=== PATIENT | female | born 1935 | race Caucasian/White ===

== ENCOUNTER 2019-04-26 16:32 | Inpatient (IN) | payer MEDICARE, BC ==
[~2019-04-26] VITALS: Ht 167.6 cm; Wt 63.5 kg
--- NOTE | 2019-04-26 16:40 | NUR ---
ayanna, from [facility], c/o left hip pain s/p glf whilw making her bed, -ko. PATIENT A/OX1, BREATHING EVEN AND UNLABORED, NO SOB NOTED, KEPT COMFORTABLE, ATTACHED TO THE IT APPLICATION ADMINISTRATOR.
[2019-04-26] MEDS ORDERED: ONDANSETRON HCL/PF 4 MG/2 ML VIAL ONE (16:50)
[2019-04-26] MEDS ORDERED: MORPHINE SULFATE INJ 4 MG/ML DISP.SYRIN ONE (16:51)
[2019-04-26] MEDS ORDERED: MORPHINE SULFATE INJ 2 MG/ML DISP.SYRIN IV ONE (17:00)
[2019-04-26] MEDS ORDERED: ONDANSETRON HCL/PF 4 MG/2 ML VIAL IVP ONE (17:00)
[2019-04-26 17:05] LABS: BASOPHILS % (AUTO) 0.5 % (0.0-2.0); EOSINOPHILS % (AUTO) 0.4 % (0.0-6.0); HEMATOCRIT 37 % (33-45); HEMOGLOBIN 12.2 g/dL (11.5-14.8); LYMPHOCYTES % (AUTO) 14.9 % (20.0-44.0); MEAN CORPUSCULAR HGB CONC 33 g/dl (31.0-36.0); MEAN CORPUSCULAR VOLUME 88 fL (82-100); MONOCYTES # (AUTO) 0.5 /CMM (0.1-1.30); NEUTROPHILS % (AUTO) 77.2 % (43.0-81.0); PLATELET COUNT (AUTO) 277 /CMM (150-450); RED BLOOD CELL COUNT(AUTO) 4.18 MIL/uL (4.0-5.2); WHITE BLOOD COUNT (AUTO) 6.4 K/uL (4.3-11.0)
[2019-04-26 17:34] LABS: CREATININE 0.9 mg/dL (0.6-1.3); POTASSIUM 4.1 mmol/L (3.5-5.1)
[2019-04-26 17:41] LABS: ALBUMIN 3.7 g/dL (3.4-5.0); BILIRUBIN,DIRECT 0.1 mg/dL (0.0-0.2); BILIRUBIN,TOTAL 0.5 mg/dL (0.2-1.0); TOTAL PROTEIN, SERUM 7.4 g/dL (6.4-8.2)
[2019-04-26] MEDS ORDERED: LORA-259 PO (17:59)
--- NOTE | 2019-04-26 18:19 | NUR ---
PAGED ANASTASIYA BOONE PAGED
[2019-04-26] MEDS ORDERED: IV D5/0.45 NACL 1,000 ML IV PRN (18:40)
--- NOTE | 2019-04-26 18:56 | NUR ---
DR COPPOLA SPOKE WITH DR. BOONE.
--- NOTE | 2019-04-26 18:57 | NUR ---
CALLED NURSING SUP FOR BED
[2019-04-26] MEDS ORDERED: ACETAMINOPHEN 325 MG TABLET PO PRN (19:00)
[2019-04-26] MEDS ORDERED: ONDANSETRON HCL/PF 4 MG/2 ML VIAL IVP PRN (19:00)
[2019-04-26] MEDS ORDERED: HYDROCODONE/APAP 5/325MG 1 EACH TABLET PO PRN (19:00)
[2019-04-26] MEDS ORDERED: MAG HYDROX/AL HYDROX/SIMETH 30 ML UDC PO PRN (19:00)
[2019-04-26] MEDS ORDERED: Z GUARD REMEDY 2 OZ OINT TP PRN (19:00)
[2019-04-26] MEDS ORDERED: MAGNESIUM HYDROXIDE 30 ML UDC PO PRN (19:00)
[2019-04-26] MEDS ORDERED: ZOLPIDEM TARTRATE 5 MG TABLET PO PRN (19:00)
--- NOTE | 2019-04-26 19:01 | NUR ---
REPORT GIVEN TO DONALDO HARDEN.
--- NOTE | 2019-04-26 19:20 | NUR ---
PATIENT TRANSFERRED TO ROOM 306-1, IN STABLE CONDITION. NO DISTRESS NOTED.
--- NOTE | 2019-04-26 20:01 | NUR ---
MS/RN RECEIVED PATIENT FROM [facility]IA [facility] AT 1925, PATIENT WAS AWAKE, ALERT, ORIENTED X 2, VERY AGITATED AND WANTS TO GO HOME, EXPLAINED TO THE PATIENT ABOUT THE REASON WHY SHE IS HERE IN THE HOSPITAL BUT SEEMED NOT WANT TO LISTEN, NO DISTRESS NOTE, UNABLE TO OBTAIN INFORMATIONS FOR ADMISSION PATIENT DOES NOT WANT TO ANSWER TO QUESTIONS AT THIS TIME, NO IV ACCESS NOTED, WILL INSERT IV IF PATIENT WILL ALLOW, TAUGHT THE USE OF CALL LIGHT. WILL MOVE PATIENT CLOSE TO NURSING STATION FOR SAFETY. WILL MONITOR.
--- NOTE | 2019-04-26 20:02 | NUR ---
PATIENT REFUSED ECHO EXAM.
--- NOTE | 2019-04-26 21:11 | NUR ---
MS/RN PATIENT IS VERY UNMANAGEABLE, YELLING, REFUSING IV INSERTION, OBTAINED ORDER FROM SAFIA BABB OF ATIVAN 1 MG IM X 1.
[2019-04-26] MEDS ORDERED: LORAZEPAM INJ 2 MG/ML VIAL IM ONE (21:30)
--- NOTE | 2019-04-26 22:39 | NUR ---
MS/RN RECEIVED A CALL FROM RADHA [place] IN [place], REQUESTING UPDATE ABOUT THE PATIENT, UPDATE WAS PROVIDED. SOME INFORMATIONS OBTAINED FROM HER.
--- NOTE | 2019-04-26 22:42 | NUR ---
MS/RN PATIENT IS VERY CALM AND SLEEPY AT THIS TIME, NO DISTRESS NOTED, WHEN THE PATIENT IS SLEEPING, WILL START IV. WILL CONTINUE TO MONITOR PATIENT.
--- NOTE | 2019-04-27 01:19 | NUR ---
MS/RN ABLE TO INSERT IV AT RT. F/A G22.
--- NOTE | 2019-04-27 03:03 | NUR ---
MS/RN PATIENT TRYING TO REMOVE HER IV AND NON COMPLIANT TO INSTRUCTIONS, OBTAINED AN ORDER FOR BILATERAL SOFT WRIST RESTRAINT. WILL MONITOR PER PROTOCOL.
[2019-04-27 06:26] LABS: BASOPHILS # (AUTO) 0.1 /CMM (0.0-0.2); BASOPHILS % (AUTO) 0.7 % (0.0-2.0); EOSINOPHILS % (AUTO) 0.2 % (0.0-6.0); HEMATOCRIT 34 % (33-45); HEMOGLOBIN 11.5 g/dL (11.5-14.8); LYMPHOCYTES # (AUTO) 0.7 /CMM (0.8-4.8); LYMPHOCYTES % (AUTO) 7.9 % (20.0-44.0); MEAN CORPUSCULAR HGB CONC 34 g/dl (31.0-36.0); MEAN CORPUSCULAR VOLUME 88 fL (82-100); MONOCYTES # (AUTO) 0.7 /CMM (0.1-1.30); MONOCYTES % (AUTO) 7.9 % (2.0-12.0); NEUTROPHILS # (AUTO) 7.1 /CMM (1.8-8.9); NEUTROPHILS % (AUTO) 83.3 % (43.0-81.0); PLATELET COUNT (AUTO) 260 /CMM (150-450); RED BLOOD CELL COUNT(AUTO) 3.89 MIL/uL (4.0-5.2); WHITE BLOOD COUNT (AUTO) 8.6 K/uL (4.3-11.0)
--- NOTE | 2019-04-27 06:26 | NUR ---
MS/RN PATIENT IS STILL SLEEPING AT THIS TIME, APPEAR COMFORTABLE, NO DISTRESS NOTED, ALL NEEDS ATTENDED AT THIS TIME, WILL CONTINUE TO MONITOR.
[2019-04-27 06:52] LABS: CALCIUM, SERUM 8.6 mg/dL (8.5-10.1); CREATININE 0.9 mg/dL (0.6-1.3); MAGNESIUM 1.7 mg/dL (1.8-2.4); PHOSPHORUS 3.3 mg/dL (2.5-4.9); POTASSIUM 3.9 mmol/L (3.5-5.1)
--- NOTE | 2019-04-27 07:34 | NUR ---
MS RN NOTES PATIENT RECEIVED RESTING INSIDE ROOM. AWAKE, ALERT AND ORIENTED X 1, EASILY AGITATED. NO ACUTE DISTRESS. NO COMPLAIN OF PAIN OR DISCOMFORT AT THIS TIME. BILATERAL SOFT WRIST RESTRAINTS IN PLACE. PATIENT ON NPO STATUS. DR SCHNEIDER PRESENT AT UNIT, AWARE OF POSSIBLE SURGERY TODAY. WILL CONTINUE TO FOLLOW-UP WITH ORTHO. WILL CONTINUE TO MONITOR. BED LOCKED AND IN LOW POSITION. BILATERAL UPPER SIDE RAILS UP AND LOCKED. CALL LIGHT WITHIN EASY REACH
[2019-04-27 07:42] LABS: IRON, SERUM 31 ug/dl (50-175); TOTAL IRON BINDING CAPACITY 299 ug/dl (250-450)
--- NOTE | 2019-04-27 08:15 | NUR ---
MS RN NOTES PLACED CALL TO DR OBONE AND LEFT MESSAGE REGARDING ANTICIPATION FOR SURGERY FOR PATIENT TODAY. WILL CONTINUE TO MONITOR
[2019-04-27] MEDS: PANTOPRAZOLE 40 MG VIAL IV SCH (08:30)
[2019-04-27] MEDS: Magnesium 1GM/D5W 100ML PREMIX 100 ML IV SCH ×2 (08:30→10:30)
[2019-04-27 10:41] LABS: THYROID STIMULATING HORMONE 1.518 uIU/mL (0.358-3.74)
[2019-04-27 13:33] LABS: FERRITIN 71 ng/mL (8-388)
--- NOTE | 2019-04-27 18:36 | NUR ---
MS RN NOTES PATIENT RESTING INSIDE ROOM. AWAKE, ALERT AND ORIENTED X 1, EASILY AGITATED. NO ACUTE DISTRESS. NO CHANGES IN LOC NOTED. BILATERAL SOFT WRIST RESTRAINTS IN PLACE. PATIENT KEPT CLEAN, DRY AND COMFORTABLE. SAFETY PRECAUTIONS IN PLACE. WILL ENDORSE TO INCOMING SHIFT FOR AUGUST. BED LOCKED AND IN LOW POSITION. SIDE RAILS UP X 3. CALL LIGHT WITHIN EASY REACH
--- NOTE | 2019-04-27 20:25 | NUR ---
MS/RN RECEIVED PATIENT AT 1930 AWAKE, ALERT, COMBATIVE, WITH BOTH WRIST SOFT RESTRAINT PATIENT WAS TRYING TO REMOVE IV LINE, NO DISTRESS NOTED, WILL MONITOR.
[2019-04-27 20:34] VITALS: BP 152/100
--- NOTE | 2019-04-27 22:57 | NUR ---
MS/RN PATIENT IS SLEEPING, APPEAR COMFORTABLE, NO DISTRESS NOTED, WILL MONITOR.
[2019-04-28] VITALS (15 sets, daily range): BP systolic 119–166; BP diastolic 58–84
--- NOTE | 2019-04-28 06:16 | NUR ---
MS/RN PATIENT IS AWAKE, ALERT, COMFORTABLE, NO DISTRESS NOTED, MORNING CARE WAS DONE AT 0500, ALL NEEDS ATTENDED AT THIS TIME, WILL CONTINUE TO MONITOR.
[2019-04-28 06:26] LABS: BASOPHILS % (AUTO) 0.2 % (0.0-2.0); HEMATOCRIT 36 % (33-45); HEMOGLOBIN 12.2 g/dL (11.5-14.8); LYMPHOCYTES # (AUTO) 1.1 /CMM (0.8-4.8); LYMPHOCYTES % (AUTO) 10.4 % (20.0-44.0); MEAN CORPUSCULAR HGB CONC 34 g/dl (31.0-36.0); MEAN CORPUSCULAR VOLUME 86 fL (82-100); MONOCYTES # (AUTO) 0.8 /CMM (0.1-1.30); MONOCYTES % (AUTO) 8.2 % (2.0-12.0); NEUTROPHILS # (AUTO) 8.2 /CMM (1.8-8.9); NEUTROPHILS % (AUTO) 81.2 % (43.0-81.0); PLATELET COUNT (AUTO) 278 /CMM (150-450); RED BLOOD CELL COUNT(AUTO) 4.13 MIL/uL (4.0-5.2); WHITE BLOOD COUNT (AUTO) 10.2 K/uL (4.3-11.0)
[2019-04-28 07:12] LABS: CALCIUM, SERUM 8.7 mg/dL (8.5-10.1); CREATININE 0.9 mg/dL (0.6-1.3); MAGNESIUM 2.3 mg/dL (1.8-2.4); PHOSPHORUS 3.1 mg/dL (2.5-4.9)
--- NOTE | 2019-04-28 07:47 | NUR ---
MS RN NOTES PATIENT RECEIVED RESTING INSIDE ROOM. AWAKE, ALERT AND ORIENTED X 1, EASILY AGITATED. NO ACUTE DISTRESS. NO COMPLAIN OF PAIN OR DISCOMFORT AT THIS TIME. PATIENT ON NPO STATUS, WITH PLAN FOR LEFT HIP HEMIARTHROPLASTY TODAY AT 1500. SITTER AT BEDSIDE. SAFETY PRECAUTIONS IN PLACE. WILL CONTINUE TO MONITOR. BED LOCKED AND IN LOW POSITION. BILATERAL UPPER SIDE RAILS UP AND LOCKED. CALL LIGHT WITHIN EASY REACH
[2019-04-28] MEDS: PANTOPRAZOLE 40 MG VIAL IV SCH (08:49)
--- NOTE | 2019-04-28 12:30 | NUR ---
MS RN NOTES PLACED CALL TO PHARMACY TO REQUEST FOR FERRLICIT IV. WILL CONTINUE TO MONITOR
--- NOTE | 2019-04-28 14:00 | NUR ---
MS RN NOTES FERRLICIT IV UNAVAILABLE AT THIS TIME, AWAITING FOR PHARMACY DELIVERY. WILL CONTINUE TO MONITOR
--- NOTE | 2019-04-28 14:45 | NUR ---
MS RN NOTES PATIENT LEFT UNIT VIA HOSPITAL BED. LEFT IN STABLE CONDITION. NO CHANGES IN LOC NOTED. IV INTACT AND PATENT.
[2019-04-28] MEDS ORDERED: MIDAZOLAM HCL 2 MG/2ML VIAL ONE (15:14)
[2019-04-28] MEDS ORDERED: FENTANYL PF 250MCG/5ML AMPUL ONE (15:14)
[2019-04-28] MEDS ORDERED: FENTANYL PF 100MCG/2ML AMPUL ONE (15:15)
[2019-04-28] MEDS ORDERED: FAMOTIDINE/PF INJ 20 MG/2 ML VIAL IV ONE (15:15)
[2019-04-28] MEDS ORDERED: ROCURONIUM BROMIDE 50 MG/5 ML ONE (15:15)
[2019-04-28] MEDS ORDERED: BUPIVACAINE 0.5 % PF 150 MG/30 ML VIAL ONE (15:24)
[2019-04-28] MEDS ORDERED: BACITRACIN 50000 UNITS/VIAL ONE (15:24)
[2019-04-28] MEDS ORDERED: SEVOFLURANE 250 ML BOTTLE IH ONE (16:23)
--- NOTE | 2019-04-28 18:19 | NUR ---
MS RN NOTES PATIENT BACK TO UNIT, WHEELED BY OR STAFF VIA HOSPITAL BED. REPORT RECEIVED FROM GILMA HARDEN. PATIENT ASLEEP, EASILY AROUSABLE THROUGH VERBAL AND TACTILE STIMULI. ROBLEDO PLACED IN OR, DRAINING YELLOW URINE OUTPUT IN COLLECTING BAG. DRESSING IN PLACE ON LEFT HIP, NO ACTIVE BLEEDING NOTED. ABDUCTOR PILLOW IN PLACE. WILL CONTINUE TO MONITOR. BED LOCKED AND IN LOW POSITION. BILATERAL UPPER SIDE RAILS UP AND LOCKED. CALL LIGHT WITHIN EASY REACH
--- NOTE | 2019-04-28 18:20 | NUR ---
MS RN NOTES PLACED CALL TO PHARMACY TO REQUEST FOR FERRLICIT
--- NOTE | 2019-04-28 18:46 | NUR ---
MS RN NOTES PATIENT RESTING INSIDE ROOM. SLEEPING, AROUSABLE THROUGH VERBAL AND TACTILE STIMULI. NO ACUTE DISTRESS. PATIENT KEPT CLEAN, DRY AND COMFORTABLE. SITTER AT BEDSIDE. IV INTACT AND PATENT. ROBLEDO CATH IN PLACE WITH YELLOW URINE OUTPUT NOTED ON COLLECTING BAG. WILL ENDORSE TO INCOMING SHIFT FOR AUGUST. BED LOCKED AND IN LOW POSITION. BILATERAL UPPER SIDE RAILS UP AND LOCKED. CALL LIGHT WITHIN EASY REACH
[2019-04-28] MEDS: IV LR 1000 ML 1,000 ML IV PRN (19:24)
[2019-04-28] MEDS: SOD FERRIC GLUC 125 MG in IV NS 0.9% 100 ML IV SCH (19:24)
--- NOTE | 2019-04-28 20:00 | NUR ---
MS/RN OPENING NOTES RECEIVED PATIENT IN BED. RESTING AND ASLEEP BUT AROUSES WITH LIGHT TOUCH ON NASAL CANULA OXYGEN AT 2LITER, S/P SURGERY, WAS BROUGHT 1618. PATIENT VITAL SIGNS CHECK EVERY 15 MIN.AND WILL MONITOR. LEFT FEMUR DRESSING INTACT WITH NO S/S OF BLEEDING. IV FERLICIT INFUSING , WILL MONITOR. SITTER AT BEDSIDE, IV SITE PATENT. WILL MONITOR. RECEIVED ENDORSEMENT FROM AM RN FOR AUGUST.
--- NOTE | 2019-04-28 20:10 | NUR ---
ms/rn notes abductor pillow in place.
--- NOTE | 2019-04-28 20:20 | NUR ---
ms/rn notes IV FERILICIT GIVEN
[2019-04-28] MEDS: CEFAZOLIN 2 GM in IV D5W 100 ML IV SCH (23:44)
[2019-04-29] VITALS (8 sets, daily range): BP systolic 109–145; BP diastolic 61–94
--- NOTE | 2019-04-29 00:48 | NUR ---
MS/RN NOTES PATIENT AWAKE. REPOSITION FOR COMFORT, YELLS AND SCREAMS AT THE NURSE WHEN MAKING ROUNDS AND BEING MONITORED.
[2019-04-29] MEDS: MORPHINE SULFATE INJ 2 MG/ML DISP.SYRIN IV PRN ×2 (01:53→09:06)
--- NOTE | 2019-04-29 01:54 | NUR ---
MS/RN NOTES PATIENT TO ADMINISTER PAIN MEDICATION MORPHINE SULPHATE IVP FOR NOTED RESTLESSNESS, GUARDING AND MOANING. WITH IRRITABILITY. TO MONITOR.
--- NOTE | 2019-04-29 04:47 | NUR ---
MS/RN NOTES PATIENT AWAKE. ALERT X1, RESPONSIVE TO CARE WITH BUT REQUIRE EXTENSIVE ASSISTANCE AND REORIENTATION.MORE CALM.
--- NOTE | 2019-04-29 06:26 | NUR ---
MS/RN NOTES RIGHT AND LEFT IV SITE PULLED OUT BY PATIENT. FAILED ATTEMPTED ONE TIME INSERTION , PATIENT REFUSE AT THIS TIME. ABLE TO TOLERATE FLUIDS AND ATE APPLE SAUCE HOB ELEVATED/
--- NOTE | 2019-04-29 06:45 | NUR ---
MS/RN NOTES PATIENT IN BED, AWAKE X1, ABLE TO STATE NAME, CAN MAKE GOOD EYE CONTACT, ON OXY GEN AT NS AT 2l O2 SAT AT 97%, REQUIRE MONITOIRNG, SITTER AT BEDSIDE, WAS ABLE TO ADMINISTER MEDICATION AND IV BUT DURING HYGIENE CARE, PULLED OUT IVF, WILL MONITOR. BED LOCKED CALL LIGHTS WITHIN REACH, WILL MONITOR.
[2019-04-29 06:47] LABS: BASOPHILS % (AUTO) 0.3 % (0.0-2.0); EOSINOPHILS % (AUTO) 0.1 % (0.0-6.0); HEMATOCRIT 33 % (33-45); LYMPHOCYTES # (AUTO) 0.8 /CMM (0.8-4.8); LYMPHOCYTES % (AUTO) 7.6 % (20.0-44.0); MEAN CORPUSCULAR HGB CONC 33 g/dl (31.0-36.0); MEAN CORPUSCULAR VOLUME 88 fL (82-100); MONOCYTES # (AUTO) 0.9 /CMM (0.1-1.30); MONOCYTES % (AUTO) 9.5 % (2.0-12.0); NEUTROPHILS # (AUTO) 8.2 /CMM (1.8-8.9); NEUTROPHILS % (AUTO) 82.5 % (43.0-81.0); PLATELET COUNT (AUTO) 264 /CMM (150-450); RED BLOOD CELL COUNT(AUTO) 3.77 MIL/uL (4.0-5.2); WHITE BLOOD COUNT (AUTO) 9.9 K/uL (4.3-11.0)
[2019-04-29 07:08] LABS: CALCIUM, SERUM 7.9 mg/dL (8.5-10.1); MAGNESIUM 2.2 mg/dL (1.8-2.4); PHOSPHORUS 2.9 mg/dL (2.5-4.9); POTASSIUM 4.1 mmol/L (3.5-5.1)
--- NOTE | 2019-04-29 07:30 | NUR ---
RN OPENING NOTES RECEIVED PATIENT IN BED RESTING. A/OX1, KNOWS NAME BUT CONFUSED. PATIENT IS CALM AT THE MOMENT. NOT IN ANY FORM OF DISTRESS. NO SOB. DENIED PAIN OR DISCOMFORT AT THIS TIME. NO IV ACCESS NOTED. ROBLEDO IN PLACE, DRAINING CLEAR YELLOW URINE. SITTER AT BEDSIDE FOR SAFETY. KEPT PATIENT SAFE AND COMFORTABLE. BED IN LOW/LOCKED POSITION, SIDERAILS UP, CALL LIGHT IN REACH. WILL CONTINUE TO MONITOR ACCORDINGLY
--- NOTE | 2019-04-29 08:00 | NUR ---
rn notes inserted new iv access on right forearm gauge 22, intact and patent, saline flushed. pt tolerated well. abductor pillow in place. will cont to monitor
[2019-04-29] MEDS: CEFAZOLIN 2 GM in IV D5W 100 ML IV SCH (09:04)
[2019-04-29] MEDS: PANTOPRAZOLE 40 MG VIAL IV SCH (09:05)
[2019-04-29] MEDS: ENOXAPARIN SODIUM 40 MG/0.4 ML DISP.SYRIN SQ SCH (09:07)
--- NOTE | 2019-04-29 09:10 | NUR ---
rn notes lovenox 40mg SQ given as ordered. no bleeding nor bruising noted. will monitor accordingly
[2019-04-29] MEDS: ALBUTEROL FS 2.5 MG/0.5 ML VIAL.NEB NEB PRN ×2 (12:12→12:40)
[2019-04-29] MEDS ORDERED: ALBUTEROL FS 2.5 MG/0.5 ML VIAL.NEB NEB PRN (12:30)
[2019-04-29] MEDS ORDERED: IPRATROPIUM NEB FS 0.5 MG/2.5 ML AMPUL.NEB NEB PRN (12:30)
[2019-04-29] MEDS ORDERED: IPRATROPIUM NEB FS 0.5 MG/2.5 ML AMPUL.NEB NEB ONE (13:00)
[2019-04-29] MEDS: SOD FERRIC GLUC 125 MG in IV NS 0.9% 100 ML IV SCH (15:16)
[2019-04-29] MEDS: IPRATROPIUM NEB FS 0.5 MG/2.5 ML AMPUL.NEB NEB SCH ×3 (16:23→23:08)
[2019-04-29] MEDS: ALBUTEROL FS 2.5 MG/0.5 ML VIAL.NEB NEB SCH ×3 (16:23→23:08)
--- NOTE | 2019-04-29 19:22 | NUR ---
RN CLOSING NOTES PATIENT IN STABLE CONDITION. ALL NEEDS ATTENDED AND PROVIDED. ALL DUE MEDS GIVEN ORDERED. TURNED AND REPOSITIONED PATIENT EVERY 2HRS NEEDED. SITTER AT BEDSIDE. KEPT PATIENT SAFE AND COMFORTABLE. BED IN LOW/LOCKED POSITION, SIDERAILS UPX2, CALL LIGHT IN REACH. ENDORSED TO NIGHT RN FOR AUGUST.
--- NOTE | 2019-04-29 19:39 | NUR ---
MS/RN OPENING NOTES RECEIVED PATIENT IN BED, HOB ELEVATED, [place] [facility] [place] ABLE TO HAVE GOOD EYE CONTACT AND RESPOND, FORGETFUL REQUIRE ASSISTANCE WITH ADLS, SITTER AT BED SIDE, TO MONITOR FOR ANY CHANGES, WILL CONTINUE WITH CARE, TO REMOVE ROBLEDO TONIGHT AND CHECK PATENCY OF IV. BED LOCKED, CALL LIGHTS WITHIN REACH, WILL MONITOR.
[2019-04-29] MEDS: LORAZEPAM INJ 2 MG/ML VIAL IV PRN ×2 (20:24→20:30)
--- NOTE | 2019-04-29 20:35 | NUR ---
MS/RN NOTES PATIENT UNABLE TO RELAX, PULLING OUT IV TUBING REQUIRE SITTER AT BEDSIDE FOR SAFETY.
--- NOTE | 2019-04-29 20:36 | NUR ---
MS/RN NOTES IV ATIVAN 0.25 ML ADMINISTERED IVP ON RIGHT HAND. WILL MONITOR.
--- NOTE | 2019-04-29 21:44 | NUR ---
MS/RN NOTES MD BABB MADE AWARE REGARDING PATIENT SON REQUEST TO HAVE NEEDED SOFT RESTRAINTS WHEN PATIENT EXHIBITS BEHAVIOR PULLING TUBES EVEN WITH A SITTER, AWAITING FOR MD ORDER.
[2019-04-29] MEDS: IV LR 1000 ML 1,000 ML IV PRN (22:42)
[2019-04-30] MEDS: IPRATROPIUM NEB FS 0.5 MG/2.5 ML AMPUL.NEB NEB SCH ×6 (03:21→23:41)
[2019-04-30] MEDS: ALBUTEROL FS 2.5 MG/0.5 ML VIAL.NEB NEB SCH ×6 (03:21→23:41)
--- NOTE | 2019-04-30 06:44 | NUR ---
MS/RN CLOSING NOTES PATIENT IN BED, AWAKE, ABLE TO SLEEP DURING THE NIGHT, HAD HYGIENE CARE, ABLE TO URINATE WITH DIPAER ROBLEDO WAS REMOVED PER MD INSTRUCTIONS. MONITORED AND OBSERVED BY SITTER FOR ANY CHANGES PATIENT CAN CHANGE MOOD QUICKLY BY SCREAMING AND SCRATCHING AND PULLING NASAL CANULA AND IV LINES, SON INSTRUCTED TO KEEP SOFT RESTRAINTS TO AVOID ANYCONCERNS THAT MAY REQUIE IV REINSERTION OR CHANGES. MD BABB LEFT MESSAGE AWAITING FOR ORDER.
[2019-04-30 07:10] LABS: BASOPHILS % (AUTO) 0.4 % (0.0-2.0); EOSINOPHILS % (AUTO) 0.2 % (0.0-6.0); HEMATOCRIT 30 % (33-45); HEMOGLOBIN 10.3 g/dL (11.5-14.8); LYMPHOCYTES # (AUTO) 0.8 /CMM (0.8-4.8); LYMPHOCYTES % (AUTO) 9.8 % (20.0-44.0); MEAN CORPUSCULAR HGB CONC 34 g/dl (31.0-36.0); MEAN CORPUSCULAR VOLUME 87 fL (82-100); MONOCYTES # (AUTO) 0.9 /CMM (0.1-1.30); MONOCYTES % (AUTO) 10.9 % (2.0-12.0); NEUTROPHILS # (AUTO) 6.6 /CMM (1.8-8.9); NEUTROPHILS % (AUTO) 78.7 % (43.0-81.0); PLATELET COUNT (AUTO) 261 /CMM (150-450); RED BLOOD CELL COUNT(AUTO) 3.48 MIL/uL (4.0-5.2); WHITE BLOOD COUNT (AUTO) 8.4 K/uL (4.3-11.0)
--- NOTE | 2019-04-30 07:30 | NUR ---
MS RN NOTES-- PT IS ON 1:1 SITTER, FOUND WITH RESTRAINTS ON. RESTRAINS TAKEN OFF. WILL MONITOR FOR SAFETY.
[2019-04-30 07:51] LABS: CALCIUM, SERUM 7.8 mg/dL (8.5-10.1); CREATININE 1.1 mg/dL (0.6-1.3); MAGNESIUM 2.5 mg/dL (1.8-2.4); PHOSPHORUS 3.1 mg/dL (2.5-4.9); POTASSIUM 3.9 mmol/L (3.5-5.1)
[2019-04-30 08:00] VITALS: BP 125/61
[2019-04-30] MEDS: PANTOPRAZOLE 40 MG VIAL IV SCH (09:03)
[2019-04-30] MEDS: LORAZEPAM INJ 2 MG/ML VIAL IV PRN ×2 (09:03→20:36)
[2019-04-30] MEDS: ENOXAPARIN SODIUM 40 MG/0.4 ML DISP.SYRIN SQ SCH (09:04)
--- NOTE | 2019-04-30 09:30 | NUR ---
MS RN NOTES-- SON ROBERTO CARLOS AT BEDSIDE WITH SITTER. UPDATED ROBERTO CARLOS ON PLAN OF CARE.
[2019-04-30] MEDS: SOD FERRIC GLUC 125 MG in IV NS 0.9% 100 ML IV SCH (15:07)
--- NOTE | 2019-04-30 18:35 | NUR ---
MS RN END OF SHIFT SUMMARY PT IS A/OX1, REMAINS AFEBRILE. RESPIRATIONS ARE EVEN AND UNLABORED, NOT IN ANY ACUTE DISTRESS NOTED. NO C/O SOB, N/V. NEW PERIPHERAL IV TO RFA G22, DRESSING KEPT CLEAN AND DRY. PT TOLERATED WELL. PT RECEIVED 1 BAG OF FERRILICIT. SITTER AT BEDSIDE, PT KEPT CLEAN AND COMFORTABLE, REPOSITION Q2H. NO EPISODES OT SPITTING OR SCRATCHING DURING SHIFT. SKIN IS KEPT CLEAN AND DRY. ABDUCTOR PILLOW PLACED IN PROPER POSITION D/T POSTOP. INSTRUCTED PT TO USE CALL LIGHT WHEN ASSISTANCE IS NEEDED, CALL LIGHT IS LEFT WITHIN REACH. WILL CONTINUE TO MONITOR AND ENDORSE TO NEXT SHIFT FOR CONTINUITY OF CARE.
--- NOTE | 2019-04-30 19:30 | NUR ---
MS RN OPENING NOTE RECEIVED PATIENT IN BED. A/O X1. TOLERATING ROOM AIR. RESPIRATIONS ARE EVEN AND UNLABORED. NO S/S SOB NOTED. DENIES PAIN AT THIS TIME. IN NO APPARENT DISTRESS. IV ACCESS IN RFA #22 RUNNING LR @75ML/HR. BED IS LOW AN DLOCKED, HOB IN SEMI FOWLERS, SIDE RAILS UP X2, BED ALARM ON, SITTER AT BEDSIDE, CALL LIGHT WITHIN REACH, WILL CONTINUE TO MONITOR.
[2019-04-30 20:00] VITALS: BP 125/61
--- NOTE | 2019-04-30 20:36 | NUR ---
MS RN NOTE ADMINISTER PRN ATIVAN 0.5 MG D/T PATIENT GETTING AGGRESSIVE, AGITATED, SPITTING, SCRATCHING,CURSING. WILL CONTINUE TO MONITOR. MED WASTED WITH JENNY HARDEN, PLACED IN WASTE PHARM BIN.
--- NOTE | 2019-04-30 20:59 | NUR ---
MS RN NOTE UNABLE TO FOLLOW PROTOCOL FOR SKIN/ WOUND PICTURE DOCUMENTATION D/T MD HAS NOT CHANGED FIRST DRESSING YET. OTHER THAN THE SURGICAL SITE, SKIN IS INTACT.
[2019-04-30] MEDS: IV LR 1000 ML 1,000 ML IV PRN (22:16)
[2019-05-01] MEDS: IPRATROPIUM NEB FS 0.5 MG/2.5 ML AMPUL.NEB NEB SCH ×6 (03:30→23:32)
[2019-05-01] MEDS: ALBUTEROL FS 2.5 MG/0.5 ML VIAL.NEB NEB SCH ×6 (03:30→23:32)
--- NOTE | 2019-05-01 06:17 | NUR ---
MS RN CLOSING NOTE PATIENT IN BED. A/O X1. REMAINS TOLERATING ROOM AIR. RESPIRATIONS ARE EVEN AND UNLABORED. NO EPISODE OF SOB NOTED. NO C/O PAIN. NO DISTRESS NOTED. IV ACCESS MAINTAINED IN RFA #22 RUNNING LR @75ML/HR. BED IS LOW AND LOCKED, HOB IN SEMI FOWLERS, SIDE RAILS UP X2, BED ALARM ON, SITTER AT BEDSIDE, CALL LIGHT WITHIN REACH, WILL ENDORSE TO NEXT SHIFT.
[2019-05-01 06:28] LABS: BASOPHILS % (AUTO) 0.4 % (0.0-2.0); HEMATOCRIT 27 % (33-45); HEMOGLOBIN 9.1 g/dL (11.5-14.8); LYMPHOCYTES # (AUTO) 1.1 /CMM (0.8-4.8); LYMPHOCYTES % (AUTO) 14.6 % (20.0-44.0); MEAN CORPUSCULAR HGB CONC 34 g/dl (31.0-36.0); MEAN CORPUSCULAR VOLUME 88 fL (82-100); MONOCYTES # (AUTO) 0.8 /CMM (0.1-1.30); MONOCYTES % (AUTO) 10.7 % (2.0-12.0); NEUTROPHILS # (AUTO) 5.4 /CMM (1.8-8.9); NEUTROPHILS % (AUTO) 73.3 % (43.0-81.0); PLATELET COUNT (AUTO) 274 /CMM (150-450); RED BLOOD CELL COUNT(AUTO) 3.05 MIL/uL (4.0-5.2); WHITE BLOOD COUNT (AUTO) 7.4 K/uL (4.3-11.0)
[2019-05-01 06:45] LABS: CALCIUM, SERUM 7.9 mg/dL (8.5-10.1); CREATININE 0.9 mg/dL (0.6-1.3); MAGNESIUM 2.6 mg/dL (1.8-2.4); PHOSPHORUS 2.7 mg/dL (2.5-4.9); POTASSIUM 3.9 mmol/L (3.5-5.1)
[2019-05-01 08:00] VITALS: BP 116/66
[2019-05-01] MEDS: PANTOPRAZOLE 40 MG VIAL IV SCH (08:39)
[2019-05-01] MEDS: ENOXAPARIN SODIUM 40 MG/0.4 ML DISP.SYRIN SQ SCH (08:49)
[2019-05-01] MEDS: LORAZEPAM INJ 2 MG/ML VIAL IV PRN (15:24)
[2019-05-01 16:00] VITALS: BP 164/91
[2019-05-01] MEDS: SOD FERRIC GLUC 125 MG in IV NS 0.9% 100 ML IV SCH (17:26)
--- NOTE | 2019-05-01 18:00 | NUR ---
IV line infiltrated and removed. A new IV line to the left forearm prateek 22 flushing well.
--- NOTE | 2019-05-01 19:19 | NUR ---
PT IS A/OX1, REMAINS STABLE ON ROOM AIR. RESPIRATIONS ARE EVEN AND UNLABORED. NO C/O SOB. NEW PERIPHERAL IV TO LFA G22. PT RECEIVED 1 BAG OF FERRLECIT. SITTER AT BEDSIDE, PT KEPT CLEAN AND COMFORTABLE, REPOSITION Q2H. EPISODES OF SPITTING AND SCRATCHING AND AGGRESSIVENESS NOTED. SKIN IS KEPT CLEAN AND DRY. ABDUCTOR PILLOW PLACED IN PROPER POSITION. SAFETY PRECAUTIONS OBSERVED AND IMPLEMENTED. CALL LIGHT WITHIN REACH
--- NOTE | 2019-05-01 19:45 | NUR ---
MS RN OPENING NOTE RECEIVED PATIENT IN BED. A/O X1. TOLERATING ROOM AIR. RESPIRATIONS ARE EVEN AND UNLABORED. PATIENT SEEMS TO HAVE INCREASED WORK OF BREATHING. DENIES PAIN AT THIS TIME. IN NO APPARENT DISTRESS. IV ACCESS IN LFA #22 RUNNING LR @75ML/HR. BED IS LOW AND LOCKED, HOB IN SEMI FOWLERS, SIDE RAILS UP X2, BED ALARM ON, SITTER AT BEDSIDE, CALL LIGHT WITHIN REACH, WILL CONTINUE TO MONITOR. [employer] VS SHOW 90% O2. DECREASED IVF TO 10ML/HR. PLACED PATIENT ON 2L OF OXYGEN VIA NASAL CANNULA. O2 NOW 93%. RT ARRIVE FOR BREATHING TX, INFORMED OF CURRENT SITUATION.
[2019-05-01 20:00] VITALS: BP 135/60
[2019-05-02] MEDS: ALBUTEROL FS 2.5 MG/0.5 ML VIAL.NEB NEB SCH ×4 (03:30→14:23)
[2019-05-02] MEDS: IPRATROPIUM NEB FS 0.5 MG/2.5 ML AMPUL.NEB NEB SCH ×4 (03:30→14:23)
--- NOTE | 2019-05-02 05:30 | NUR ---
MS RN NOTE MOVED PATIENT FROM ROOM 325-1 TO ROOM 324-2. ALL PATIENTS MEDICAL EQUIPMENT AND BELONGINGS MOVED WITH HER.
--- NOTE | 2019-05-02 07:18 | NUR ---
MS RN CLOSING NOTE PATIENT IN BED. A/O X1. REMAINS TOLERATING ROOM AIR. RESPIRATIONS ARE EVEN AND UNLABORED. NO EPISODE OF SOB NOTED. NO C/O PAIN. NO DISTRESS NOTED. IV ACCESS MAINTAINED IN LFA #22 RUNNING LR @75ML/HR. BED IS LOW AND LOCKED, HOB IN SEMI FOWLERS, SIDE RAILS UP X2, BED ALARM ON, SITTER AT BEDSIDE, CALL LIGHT WITHIN REACH, WILL ENDORSE TO NEXT SHIFT.
--- NOTE | 2019-05-02 07:40 | NUR ---
MS RN NOTES SITTER AT BEDSIDE. PATIENT FREE FROM BILATERAL SOFT WRIST RESTRAINTS
--- NOTE | 2019-05-02 07:53 | NUR ---
MS RN NOTES PATIENT RECEIVED RESTING INSIDE ROOM. AWAKE, ALERT AND ORIENTED X 1. VERBALLY RESPONSIVE. NO ACUTE DISTRESS. DENIES ANY PAIN OR DISCOMFORT. PATIENT CALM AND RELAXED AT THIS TIME. ABDUCTOR PILLOW IN PLACE. SITTER AT BEDSIDE. SAFETY PRECAUTIONS IN PLACE. WILL CONTINUE TO MONITOR. BED LOCKED AND IN LOW POSITION. BILATERAL UPPER SIDE RAILS UP AND LOCKED. CALL LIGHT WITHIN EASY REACH
[2019-05-02 08:00] VITALS: BP 155/88
--- NOTE | 2019-05-02 08:01 | NUR ---
MS RN NOTES SITTER PULLED FROM ROOM. NO SITTER AT BEDSIDE. PATIENT NOTED WITH ATTEMPTS OF PULLING IV AND ABDUCTOR PILLOW. EDUCATION PROVIDED TO PATIENT BUT PATIENT WOULD YELL AND STATE THAT SHE DOES NOT NEED THEM AND SHE WILL TAKE THEM OFF. BILATERAL SOFT WRIST RESTRAINTS PLACED ON PATIENT PER ORDER. SAFETY PRECAUTIONS IN PLACE. BED ALARM ON. WILL CONTINUE TO MONITOR
[2019-05-02] MEDS: PANTOPRAZOLE 40 MG VIAL IV SCH (09:00)
[2019-05-02] MEDS: ENOXAPARIN SODIUM 40 MG/0.4 ML DISP.SYRIN SQ SCH (09:01)
--- NOTE | 2019-05-02 12:30 | NUR ---
MS RN NOTES RECEIVED ORDERS FROM DR MARTIN FOR DISCHARGE TO SNF. RECEIVED CALL FROM WITH PLAN OF TRANSFER TO [facility] AND SON, AMARILYS DIA. PLACED CALL TO [facility] ([phone]) AND GAVE REPORT TO MARIA DEL CARMEN
[2019-05-02] MEDS: SOD FERRIC GLUC 125 MG in IV NS 0.9% 100 ML IV SCH (13:09)
--- NOTE | 2019-05-02 15:12 | NUR ---
MS RN NOTES PATIENT FOR DISCHARGE TODAY. TO TRANSFER TO [facility]. DISCHARGE INSTRUCTIONS AND EDUCATION PROVIDED. IV REMOVED, TIP INTACT, PRESSURE DRESSING PLACED ON SITE. ALL BELONGINGS COMPLETE ON DISCHARGE, PATIENT'S WRISTWATCH OBTAINED FROM NURSING SAFE AND GIVEN TO PATIENT, NO REPORT OF MISSING INVENTORY. NO NEW SKIN BREAKDOWN NOTED ON DISCHARGE, WOUND DRESSING CHANGED ON LEFT HIP. PATIENT LEFT UNIT VIA GURNEY IN STABLE CONDITION. NO ACUTE DISTRESS. NO C/O PAIN OR DISCOMFORT. MD AWARE OF DISCHARGE
== END 2019-05-02 15:19 | DRG 469 ==
LOC: ER 16:35 → MED 19:00
PROVIDERS: ADMIT Student in an Organized Health Care Education/Training Program
PROC: 0SRS0JZ Replacement of Left Hip Joint, Femoral Surface with Synthetic Substitute, Open Approach (ICD-10-PCS; principal; 2019-04-28)
DX: S72.002A Fracture of unspecified part of neck of left femur, initial encounter for closed fracture (principal); G93.41 Metabolic encephalopathy; J98.11 Atelectasis; J90 Pleural effusion, not elsewhere classified; W18.30XA Fall on same level, unspecified, initial encounter; Y92.89 Other specified places as the place of occurrence of the external cause; Z59.0 Homelessness; E86.0 Dehydration; E83.42 Hypomagnesemia; F03.90 Unspecified dementia, unspecified severity, without behavioral disturbance, psychotic disturbance, mood disturbance, and anxiety; I50.9 Heart failure, unspecified
CPT/HCPCS: 36415; 71045-TC; 72170-TC; 73502; 73552; 80048-TC; 80061-TC; 80076-TC; 82728-TC; 83540-TC; 83735-TC; 83880; 84100-TC; 84439-TC; 84443-TC; 84484-TC; 85025-TC; 85027-TC; 85730-TC; 86850-TC; 87081-TC; 88305-TC; 88311-TC; 93307-TC; 97110-TC; 97112-TC; 97116-TC; 97530-TC; A4217; A6209; C1776; C9113; G0378; J0690; J1650; J2060; J2250; J2270; J2405; J2704; J2710; J2765; J2916; J3010; J3475; J3490; J7030; J7050; J7060; J7120